=== PATIENT | female | born 1955 | race Caucasian/White ===

== ENCOUNTER 2018-07-19 11:16 | Outpatient (CLI) | payer OTHER | END 2018-07-19 11:18 | disposition home or self-care (01) | LOC: SONOGRAMA 11:16 | DX: N84.0 Polyp of corpus uteri (principal) ==

== ENCOUNTER → 2018-08-29 | Day surgery (SDC) | payer OTHER ==
[~2018-08-29] MED LIST: CHLORTHALIDONE25 MG PO; OMEGA-31000 MG PO
== END | disposition home or self-care (01) ==
LOC: CIR.AMB 06:00
DX: N84.0 Polyp of corpus uteri (principal)

== ENCOUNTER 2018-10-19 09:45 | Inpatient (IN) | payer OTHER ==
[~2018-10-19] VITALS: Ht 165.1 cm; Wt 74.8 kg
== END 2018-10-26 14:55 | DRG 743 ==
LOC: ADM 09:45 → EDSTATUS 10-21 07:30 → OB/GYN 10-24 06:20 → O/R 10-24 06:20 → SURH 10-24 07:30 → OB/GYN 10-24 10:57
PROVIDERS: ADMIT Obstetrics & Gynecology
PROC: 0UT70ZZ Resection of Bilateral Fallopian Tubes, Open Approach (ICD-10-PCS; 2018-10-24)
PROC: 0UT90ZZ Resection of Uterus, Open Approach (ICD-10-PCS; principal; 2018-10-24 08:30)
DX: D25.1 Intramural leiomyoma of uterus (principal); D25.0 Submucous leiomyoma of uterus; N72 Inflammatory disease of cervix uteri; N84.0 Polyp of corpus uteri

== ENCOUNTER 2018-11-03 21:19 | Emergency (ER) | payer OTHER ==
[~2018-11-03] VITALS: Ht 165.1 cm; Wt 74.8 kg
== END 2018-11-03 21:59 | disposition home or self-care (01) ==
LOC: ER 21:19
DX: T81.31XA Disruption of external operation (surgical) wound, not elsewhere classified, initial encounter (principal)